=== PATIENT | male | born 2005 | race Two or more races ===

== ENCOUNTER 2023-06-09 16:13 | Emergency (ER) | payer BC, SELFPAY ==
--- NOTE | ~2023-06-09 | XR_ITS ---
EXAMINATION: XR wrist RT min 3V DATE: 06/09/2023 16:42 INDICATION: Right wrist pain post fall while wrestling TECHNIQUE: Posteroanterior, ulnar deviation, oblique, and lateral views of the right wrist were obtai jay jay. COMPARISON: none FINDINGS: Alignment is normal. No fracture. Joint spaces are normal. Soft tissues are unremarkable. IMPRESSION: 1. Negative right wrist radiographs. Reviewed, dictated and finalized at location A.
[2023-06-09 16:17] VITALS: BP 149/86; PULSE 103; RESP 18; TEMP 36.9; O2SAT 98
[2023-06-09 16:26] VITALS: BP 149/86; PULSE 103; RESP 18; TEMP 36.9; O2SAT 98
--- NOTE | 2023-06-09 17:20 | ED.GENADULT ---
HPI - General Adult General Chief complaint: Extremity Injury, Upper Stated complaint: Right wrist injury Time Seen by Provider: 06/09/23 16:50 History of Present Illness HPI narrative: 17-year-old male to the emergency department evaluation of right wrist pain. Patient reports that he struck his wrist on a dresser. Patient reports increased pain with range of motion but denies any other pain or injury. Related Data Allergies Allergy/AdvReac Type Severity Reaction Status Date / Time ibuprofen Allergy Seizure Verified 06/09/23 16:26 Review of Systems Review of Systems: All systems reviewed & are unremarkable except as noted in HPI and below Exam Narrative: APPEARANCE: Well appearing, no pain, no distress, well-nourished. HEAD: normocephalic, atraumatic. EYES: PERRLA/EOMI, conjunctivae clear. NOSE: Normal no drainage NECK: Supple. No adenopathy, no masses. RESPIRATORY: Airway patent, respirations nonlabored. Clear to auscultation bilaterally, no rales, rhonchi, wheezing. CARDIOVASCULAR: Regular rate and rhythm without murmurs rubs or gallops. ABDOMINAL: Soft, nontender, nondistended, normal bowel sounds MUSCULOSKELETAL: Moves all extremities. Some tenderness to palpation of right wrist but normal range of motion, neurovascular intact, strong cap refill NEURO: Alert. Cranial nerves II through XII intact. Grossly intact SKIN: Warm, dry. Normal Color Course Course Emergency Course: 17-year-old male presented the ED for evaluation of right wrist pain Vital Signs Vital signs: Vital Signs Temperature 98.4 F 06/09/23 16:17 Pulse Rate 103 H 06/09/23 16:17 Respiratory Rate 18 06/09/23 16:17 Blood Pressure 149/86 H 06/09/23 16:17 Pulse Oximetry 98 06/09/23 16:17 Oxygen Delivery Room Air 06/09/23 16:17 Temperature 98.4 F 06/09/23 16:26 Pulse Rate 103 H 06/09/23 16:26 Respiratory Rate 18 06/09/23 16:26 Blood Pressure 149/86 H 06/09/23 16:26 Pulse Oximetry 98 06/09/23 16:26 Oxygen Delivery Room Air 06/09/23 16:26 Medical Decision Making Differential Diagnosis Differential Diagnosis: Wrist pain, wrist fracture Vital Signs Vital Signs: Vital Signs Temperature 98.4 F 06/09/23 16:17 Pulse Rate 103 H 06/09/23 16:17 Respiratory Rate 18 06/09/23 16:17 Blood Pressure 149/86 H 06/09/23 16:17 Pulse Oximetry 98 06/09/23 16:17 Oxygen Delivery Room Air 06/09/23 16:17 Temperature 98.4 F 06/09/23 16:26 Pulse Rate 103 H 06/09/23 16:26 Respiratory Rate 18 06/09/23 16:26 Blood Pressure 149/86 H 06/09/23 16:26 Pulse Oximetry 98 06/09/23 16:26 Oxygen Delivery Room Air 06/09/23 16:26 Imaging Data Radiologist's impression: Impressions Wrist X-Ray 06/09/23 16:44 IMPRESSION: 1. Negative right wrist radiographs. Discharge Plan Discharge Clinical Impression: Sprain and strain of wrist Patient Disposition: Home, Self-Care Condition: Stable Instructions: Antibiotic Form, Wrist Sprain (ED) Additional Instructions: Tylenol for pain control. Ice as directed. Milad wrap for comfort. Have close follow-up with your primary care physician. Follow-up/Referrals: Janis Dos Santos MD [Primary Care Provider] -
== END 2023-06-09 17:30 | disposition home or self-care (01) ==
PROVIDERS: Emergency Provider Emergency Medicine; PCP Pediatrics
DX: S63.501A Unspecified sprain of right wrist, initial encounter (principal); S66.911A Strain of unspecified muscle, fascia and tendon at wrist and hand level, right hand, initial encounter; W22.03XA Walked into furniture, initial encounter
CPT/HCPCS: 73110; 99283

== ENCOUNTER 2023-06-30 00:29 | Emergency (ER) | payer BC, OTHER, SELFPAY ==
--- NOTE | ~2023-06-30 | XR_ITS ---
EXAMINATION: XR chest 1V portable DATE: 06/30/2023 02:13 INDICATION: Fever and cough. TECHNIQUE: A single frontal view of the chest was obtained. COMPARISON: None. FINDINGS: The lung volumes are small. There is mild atelectasis in the lower lung zones. No pleural e ffusion or pneumothorax. The heart size is normal. IMPRESSION: 1. Small lung volumes with mild atelectasis in the lower lung zones. Reviewed, dictated and finalized at location A.
[2023-06-30 00:38] VITALS: BP 117/86; PULSE 79; RESP 18; TEMP 36.6; O2SAT 98
[2023-06-30] MEDS: ACETAMINOPHEN 500 MG TABLET 1000 MG PO (01:51)
[2023-06-30 01:52] VITALS: BP 121/58; PULSE 86; RESP 14; TEMP 38.4; O2SAT 97
--- NOTE | 2023-06-30 01:55 | ED.GENADULT ---
HPI - General Adult General Chief complaint: Seizure Stated complaint: difficulty breathing/seizure Time Seen by Provider: 06/30/23 01:17 Source: family Mode of arrival: EMS Limitations: other (autism) History of Present Illness HPI narrative: 88-year-old male presents today via EMS with mother at bedside. Patient with history of autism. Patient's mother states that patient had not been feeling well all day long. She did not notice during the day though but found out after the fact. He did go to school today as normal which she gets out early and had come home. He did go down to the bedroom and laid down. Where he had been most of the day. Patient's mother states around 11 he had texted her that he was having problems breathing. She had her daughters go down and check on him. They stated they tried waking him up when he was mumbling which is normal for him. They did give him his medicine. Patient then went back to bed. They ended up calling her mother down. Patient was lying in the bed. Mom went over to talk to him when he was having problems breathing and coughing he sat up mom states he wrapped arms around her with hands flexed out and stayed that way for second then went and laid back down. He did this again. When he was coughing and she laid him down states his legs stayed up at that time. EMS was called and arrived at the scene where they brought him into here. No tremors noted. No urinary incontinence. Patient does not have a history of seizures. He is on Depakote and Lamictal due to behavior disorders. Per patient's mother patient is but does have siblings that have seizure disorders. Related Data Allergies Allergy/AdvReac Type Severity Reaction Status Date / Time ibuprofen Allergy Seizure Verified 06/30/23 00:40 Review of Systems Review of Systems: All systems reviewed & are unremarkable except as noted in HPI and below Exam Const: General: cooperative, alert, ill appearing acutely, tired appearing and uncomfortable; No acute distress Other: patient currently shaking head yes or now for questions, alert to self per mother he does not seem like himself. HENMT: Head: normal to inspection Eyes: General: appearance normal, both eyes and all related structures Conjunctivae: conjunctival abnormality bilateral conjunctival injection diffuse Pupils: Equal, round and reactive pupils present Resp: Effort & Inspection: normal respiratory effort and able to speak in complete sentences Auscultation: clear to auscultation bilaterally Cardio: Rate: regular rate Rhythm: regular rhythm Heart sounds: S1 normal heart sound present and S2 normal heart sound present Neuro: General: patient oriented x3 Course Vital Signs Vital signs: Vital Signs Temperature 97.8 F 06/30/23 00:38 Pulse Rate 79 06/30/23 00:38 Respiratory Rate 18 06/30/23 00:38 Blood Pressure 117/86 06/30/23 00:38 Pulse Oximetry 98 06/30/23 00:38 Oxygen Delivery Room Air 06/30/23 00:38 Temperature 99.7 F H 06/30/23 03:09 Pulse Rate 100 06/30/23 03:09 Respiratory Rate 14 06/30/23 03:09 Blood Pressure 123/87 06/30/23 03:09 Pulse Oximetry 99 06/30/23 03:09 Oxygen Delivery Room Air 06/30/23 01:52 Medical Decision Making MDM Narrative Medical decision making narrative: 17-year-old male with history of autism differentials as noted below work-up to include CBC, CMP, lactate, COVID, flu, RSV, strep, urinalysis, chest x-ray. Patient with fever 101.2. Oral acetaminophen given. CBC without concerning findings, CMP without concerning findings. Lactate is normal so low suspicion patient actually had a seizure. No seizure activity during stay. Strep negative, flu negative, RSV negative patient is positive for COVID. Fever has come down after acetaminophen. Chest x-ray without obvious infiltrates. Patient's mother would like the lithium and valproic acid level drawn but will be discharged prior to results a
[2023-06-30 02:42] LABS: Basophils Percent Auto 0.3 % (0.2-1.2); Eosinophils Percent Auto 0.3 % (0-4.4); Hematocrit 39.6 % (42.0-52.0); Immature Granulocyte Absolute 0.02 K/mm3 (0.00-0.031); Immature Granulocyte Percent A 0.3 % (0-0.5); Lymphocytes Absolute Auto 1.12 K/mm3 (0.9-3.2); Mean Corpuscular HGB Conc 35.4 g/dl (32-36); Mean Corpuscular Hemoglobin 30.9 pg (26-34); Mean Corpuscular Volume 87.4 fl (80-100); Mean Platelet Volume 9.2 fl (7.4-10.4); Monocytes Percent Auto 17.3 % (2.6-8.5); Neutrophils Absolute Auto 3.7 K/mm3 (1.3-6.7); Neutrophils Percent Auto 62.8 % (45.5-73.1); Nucleated Red Blood Cells Perc 0.3 % (0.0-0.2); Platelet Count Result 212 k/mm3 (150-375); Red Blood Count 4.53 M/mm3 (4.6-6.20); White Blood Count 5.9 K/mm3 (4.5-10.0)
[2023-06-30 02:52] LABS: Lactic Acid Reflex 0.7 mmol/L (0.7-2.0)
[2023-06-30 02:53] LABS: Alanine Aminotransferase 15 U/L (6-50); Alkaline Phosphatase 64 U/L (58-237); Anion Gap 5 mmol/L (8-16); Aspartate Amino Transferase 25 U/L (17-59); Blood Urea Nitrogen 9 mg/dL (8-21); Calcium 8.9 mg/dL (8.9-10.7); Carbon Dioxide 23 mmol/L (22-30); Chloride 106 mmol/L (98-107); Estimated Glomerular Filt Rate > 60; Glucose 90 mg/dL (65-110); Potassium 3.7 mmol/L (3.4-5.0); Sodium 134 mmol/L (134-143)
[2023-06-30 03:09] VITALS: BP 123/87; PULSE 100; RESP 14; TEMP 37.6; O2SAT 99
[2023-06-30 03:12] LABS: Strep Group A RT-PCR NOT DETECTED (Negative)
[2023-06-30 03:23] LABS: Influenza A QL RT-PCR Negative (Negative); Influenza B QL RT-PCR Negative (Negative); RSV RNA, RT-PCR Negative (Negative); SARS-CoV-2 RNA PCR Positive (Negative)
[2023-06-30 03:24] LABS: Appearance Urine Clear (Clear); Bacteria Urine None Seen /hpf; Bilirubin Urine 2+ (Negative); Blood Urine Negative (Negative); Color Urine Dark Yellow (Yellow); Glucose Urine UA Negative (Negative); Ketones Urine Trace mg/dL (Negative); Leukocyte Esterase Ur Negative LEU/UL (Negative); Nitrate Urine Negative (Negative); Non Pathogenic Casts 0-2; Protein Urine 1+ mg/dL (Negative); RBC Urine 0-2 /hpf (0-2); Specific Grav Ur 1.032 (1.001-1.035); Squamous Epithelial Cell Urine None seen /hpf (Few); WBC Urine 0-5 /hpf; pH Urine 6.5 (5.0-9.0)
[2023-06-30 03:52] LABS: Add Urine Microscopic? YES
[2023-06-30 04:02] LABS: Lithium 0.5 mmol/L (0.6-1.2)
[2023-06-30 04:30] LABS: Valproic Acid < 10.0 ug/mL (50-120)
== END 2023-06-30 04:08 | disposition home or self-care (01) ==
PROVIDERS: Emergency Provider Nurse Practitioner Family; PCP Pediatrics
DX: U07.1 COVID-19 (principal)
CPT/HCPCS: 36415; 71045; 80053; 80164; 80178; 81001; 83605; 85025; 87637; 87651; 99283; A9270

== ENCOUNTER 2023-11-09 23:44 | Inpatient (IN) | payer BC, OTHER, SELFPAY ==
[2023-11-09 23:48] VITALS: BP 149/71; PULSE 83; RESP 20; TEMP 36.2; O2SAT 99
[2023-11-10] VITALS (11 sets, daily range): BP systolic 94–121; BP diastolic 50–80; PULSE 56–93; RESP 14–20; TEMP 36.5–36.7; O2SAT 93–100; BMI 30.3
--- NOTE | 2023-11-10 00:01 | ECG_ITS ---
Measurements Intervals [place] Rate: 60 P: 44 [place]: 171 QRS: 43 QRSD: 98 T: 12 QT: 414 QTc: 416 Interpretive Statements SINUS RHYTHM WITH SINUS ARRHYTHMIA NONSPECIFIC ST ELEVATION IN DIFFUSE LEADS BORDERLINE ECG NO PREVIOUS ECG AVAILABLE FOR COMPARISON Electronically Signed On 11-10-2023 6:43:55 [employer] POUNCING OPERATOR HAND by Tato Burgess D.O.
[2023-11-10] MEDS: SODIUM CHLORIDE 0.9% IV 1,000 ML 999 ML IV CONT ×2 (00:21→02:42)
--- NOTE | 2023-11-10 00:22 | PC.NURSE ---
call placed to [facility].
[2023-11-10 00:41] LABS: Basophils Percent Auto 0.4 % (0.2-1.2); Eosinophils Percent Auto 0.5 % (0-4.4); Hematocrit 42.5 % (42.0-52.0); Hemoglobin 15.2 g/dL (14.0-18.0); Immature Granulocyte Absolute 0.02 K/mm3 (0.00-0.031); Immature Granulocyte Percent A 0.3 % (0-0.5); Lymphocytes Absolute Auto 2.14 K/mm3 (0.9-3.2); Lymphocytes Percent Auto 27.7 % (18.3-44.2); Mean Corpuscular HGB Conc 35.8 g/dl (32-36); Mean Corpuscular Hemoglobin 30.1 pg (26-34); Mean Corpuscular Volume 84.2 fl (80-100); Mean Platelet Volume 9.2 fl (7.4-10.4); Monocytes Absolute Auto 0.5 K/mm3 (0.1-0.6); Monocytes Percent Auto 6.7 % (2.6-8.5); Neutrophils Percent Auto 64.4 % (45.5-73.1); Platelet Count Result 279 k/mm3 (150-375); Red Blood Count 5.05 M/mm3 (4.6-6.20); Red Cell Distribution Width 11.5 % (11.5-14.5); White Blood Count 7.7 K/mm3 (4.5-10.0)
[2023-11-10 00:43] LABS: Lithium 1.2 mmol/L (0.6-1.2)
[2023-11-10 00:44] LABS: Acetaminophen < 10 ug/mL (10-30); Ethanol < 10 mg/dL (<10)
[2023-11-10 00:45] LABS: Alanine Aminotransferase 17 U/L (6-50); Albumin Level 4.2 g/dL (3.7-5.6); Alkaline Phosphatase 75 U/L (58-237); Anion Gap 11 mmol/L (8-16); Aspartate Amino Transferase 26 U/L (17-59); Bilirubin,Total 0.8 mg/dL (0.2-1.3); Blood Urea Nitrogen 9 mg/dL (8-21); Calcium 9.4 mg/dL (8.9-10.7); Carbon Dioxide 26 mmol/L (22-30); Chloride 104 mmol/L (98-107); Estimated CRCL calculation 138 ml/min; Estimated Glomerular Filt Rate > 60; Glucose 96 mg/dL (65-110); Potassium 3.9 mmol/L (3.4-5.0); Sodium 141 mmol/L (134-143)
[2023-11-10] MEDS: ONDANSETRON INJ 4 MG/2 ML VIAL IV PUSH (00:58)
--- NOTE | 2023-11-10 01:00 | ED.OVERDOSE ---
HPI - Overdose General Chief Complaint: Overdose <ROSANNE Tapia Last Filed: 11/10/23 03:43> Stated Complaint: od <ROSANNE Tapia Last Filed: 11/10/23 03:43> Time Seen by Provider: 11/10/23 00:02 <ROSANNE Tapia Last Filed: 11/10/23 03:43> Source: patient and family <ROSANNE Tapia Last Filed: 11/10/23 03:43> Mode of arrival: ambulatory <ROSANNE Tapia Filed: 11/10/23 03:43> Limitations: no limitations <ROSANNE Tapia Filed: 11/10/23 03:43> History of Present Illness HPI Narrative: Patient is a 17-year-old male, with past medical history of schizoaffective disorder, autism, who presents the ED with report of intentional overdose. Patient reports he was having a bad day today and attempted to end his life by overdosing on lithium and Motrin at 11:04 p.m. tonight. Patient reports he took 10 of his 300 mg lithium pills with 45 tablets of OTC 200mg Ibuprofen. patient told his sister and his girlfriend he about this who then told his mother. Mother then brought him here. Patient is denying SI upon my evaluation. He states he is afraid if he falls asleep he will . He does feel fatigued, lightheaded, nauseous currently. Complains of diffuse lower abdominal pain. Denies vomiting. Patient has had numerous previous psychiatric hospitalizations. Reports previous suicide attempt, though not by overdose. Does see a psychiatrist regularly. patient does admit to auditory hallucinations, which is not uncommon for him. His stuffed animal, Fuzzy, is nearby to tell him good things. <ROSANNE Tapia Last Filed: 11/10/23 03:43> Related Data Allergies/Adverse Reactions: Allergies Allergy/AdvReac Type Severity Reaction Status Date / Time ibuprofen Allergy Seizure Verified 06/30/23 00:40 <ROSANNE Tapia Last Filed: 11/10/23 03:43> Review of Systems Review of Systems: CONSTITUTIONAL: Denies fever, chills, or sweats. CARDIOVASCULAR: Denies chest pain. RESPIRATORY: Denies dyspnea. GASTROINTESTINAL: See HPI NEUROLOGIC: See HPI PSYCHIATRIC: See HPI <Emily Barboza PA-C - Last Filed: 11/10/23 03:43> All systems reviewed & are unremarkable except as noted in HPI and below <Emily Barboza PA-C - Last Filed: 11/10/23 03:43> PMFSH Past Medical History Medical History: Medical History Autism Schizoaffective disorder <Emily Barboza PA-C - Last Filed: 11/10/23 03:43> Exam Narrative: GENERAL: Well appearing, well-nourished, non-toxic, in no acute distress. HEAD: Normocephalic, atraumatic. RESPIRATORY: Airway patent, respirations nonlabored. Clear to auscultation bilaterally, no rales, rhonchi, wheezing. CARDIOVASCULAR: Regular rate and rhythm without murmurs, rubs, or gallops. ABDOMINAL: Soft, no appreciable focal tenderness, nondistended. Normoactive BS. MUSCULOSKELETAL: Moves all extremities. No gross deformities. SKIN: Warm, dry, normal color. NEURO: A&O X3. Speech clear. Cranial nerves II-XII grossly intact. No ataxic movements. PSYCHIATRIC: Anxious, somewhat inappropriate and affable mood in regards to situation. Normal interaction. <Emily Barboza PA-C - Last Filed: 11/10/23 03:43> Course Vital Signs Vital signs: Vital Signs Temperature 97.2 F L 11/09/23 23:48 Pulse Rate 83 11/09/23 23:48 Respiratory Rate 20 11/09/23 23:48 Blood Pressure 149/71 H 11/09/23 23:48 Pulse Oximetry 99 11/09/23 23:48 Oxygen Delivery Room Air 11/09/23 23:48 Temperature 97.2 F L 11/09/23 23:48 Pulse Rate 56 L 11/10/23 02:42 Respiratory Rate 15 11/10/23 02:42 Blood Pressure 108/60 11/10/23 02:42 Pulse Oximetry 100 11/10/23 02:42 Oxygen Delivery Room Air 11/09/23 23:48 <Emily Barboza PA-C - Last Filed: 11/10/23 03:43>
[2023-11-10 01:08] LABS: Influenza A QL RT-PCR Negative (Negative); Influenza B QL RT-PCR Negative (Negative); RSV RNA, RT-PCR Negative (Negative); SARS-CoV-2 RNA PCR Negative (Negative)
[2023-11-10 02:09] LABS: Appearance Urine Clear (Clear); Bilirubin Urine Negative (Negative); Blood Urine Negative (Negative); Color Urine Yellow (Yellow); Glucose Urine UA Negative (Negative); Ketones Urine Negative (Negative); Leukocyte Esterase Ur Negative LEU/UL (Negative); Nitrate Urine Negative (Negative); Protein Urine Negative (Negative); Specific Grav Ur 1.021 (1.001-1.035)
[2023-11-10 02:15] LABS: Add Urine Microscopic? NO
[2023-11-10 02:18] LABS: Creatine Kinase 245 U/L (55-170)
[2023-11-10 02:24] LABS: Amphetamine Screen Urine Negative (Negative); Barbiturate Screen Urine Negative (Negative); Benzodiazepines Screen Urine Negative (Negative); Cannabinoid Screen Urine Negative (Negative); Cocaine Screen Urine Negative (Negative); Methadone Screen Urine Negative (Negative); Opiate Screen Urine Negative (Negative); Phencyclidine Screen Urine Negative (Negative)
[2023-11-10 03:03] LABS: Lithium 1.6 mmol/L (0.6-1.2)
[2023-11-10 03:06] LABS: Valproic Acid < 10.0 ug/mL (50-120)
[2023-11-10 05:24] LABS: Lithium 1.2 mmol/L (0.6-1.2)
--- NOTE | 2023-11-10 05:45 | ECG_ITS ---
Measurements Intervals [place] Rate: 54 P: 47 [place]: 189 QRS: 43 QRSD: 96 T: 5 QT: 416 QTc: 395 Interpretive Statements SINUS BRADYCARDIA WITH SINUS ARRHYTHMIA NONSPECIFIC ST ELEVATION IN ANTEROLAT/HIGH LAT LEADS NONSPECIFIC T-WAVE ABNORMALITY- INFERIOR LEADS BORDERLINE ECG COMPARED TO ECG 11/10/2023 00:30:23 SINUS BRADYCARDIA NOW PRESENT Electronically Signed On 11-10-2023 6:47:39 [employer]IEF LIBRARIAN BR[employer]CH [employer] DEPARTMENT by Tato Burgess D.O.
[2023-11-10] MEDS: SODIUM CHLORIDE 0.9% IV 1,000 ML 125 ML IV CONT ×2 (05:56→22:54)
[2023-11-10 06:09] LABS: Alanine Aminotransferase 16 U/L (6-50); Albumin Level 3.4 g/dL (3.7-5.6); Alkaline Phosphatase 52 U/L (58-237); Anion Gap 5 mmol/L (8-16); Aspartate Amino Transferase 26 U/L (17-59); Bilirubin,Total 1.2 mg/dL (0.2-1.3); Blood Urea Nitrogen 7 mg/dL (8-21); Calcium 8.6 mg/dL (8.9-10.7); Carbon Dioxide 24 mmol/L (22-30); Chloride 110 mmol/L (98-107); Estimated CRCL calculation 156 ml/min; Estimated Glomerular Filt Rate > 60; Glucose 91 mg/dL (65-110); Potassium 4.2 mmol/L (3.4-5.0); Sodium 139 mmol/L (134-143)
--- NOTE | 2023-11-10 06:55 | ADMGEN ---
This patient, Jeffy Mosley, was admitted to Intensive Care Unit-10. Patient/family oriented to hospital policies and general routines including ID bracelet, bed and alarms, visiting hours, pain management, procedures, bathroom and other care routines, personal items, smoking policy, room service/diet, and visiting hours. Information on how to activate the Rapid Response Team has been discussed. Patient/Family are encouraged to report perceived risks to care and to ask questions if they do not understand what they are told or what they should do.
--- NOTE | 2023-11-10 07:45 | PM.IMHP ---
H&P: HPI History of Present Illness Date/Time: 11/10/23 07:45 Chief Complaint: Intentional drug overdose Narrative: 89 years old man with history of psychiatric disorders, including suicide attempts, schizoaffective disorders, autism, brought to ED because of intentional overdose of multiple medications including lithium 300 mg x 10, ibuprofen 200 mg times 45. Patient stated he had a bad day yesterday, he had a conversation with his mom, he was not happy with the talking and he want to end his life. Patient declines the leaking the content of the conversation, and declines my offer in speaking with his mom. Patient feels tired, lightheaded, nausea, or abdomen pain. Denies chest pain, palpitation, shortness of breath. Upon arrival, patient had transient hypotension, bradycardia pulse ox 99 on room air CBC CMP unremarkable, CPK 245, lisinopril 1.6 upon arrival, repeated the same level 1.2 7:59 a.m. today [facility] Past Medical History Medical History Autism Schizoaffective disorder Family History Family History (Updated 11/10/23 @ 07:20 by Siomara Lo RN) Other Unknown family medical history Social History Social History Smoking status: Never smoker Alcohol intake: never Substance use: never Do You Feel Safe in your Home?: Yes Lack of Transportation: No Lack of Food: Never True Current Housing: I Have Housing Concerned About Future Housing: No Difficulty Paying Gas/Electric Bills: No Difficulty Paying for Meds: No Currently Unemployed: No Education: High School Diploma/GED Difficulty w/ Childcare or Family Care: No Spiritual care concerns: No Meds Home Medications and Allergies Home Medications Medication Instructions Recorded Confirmed Type divalproex 500 mg tablet,delayed 500 mg PO BID 11/10/23 11/10/23 History release ergocalciferol (vitamin D2) 1,250 1,250 mcg PO WEEKLY 11/10/23 11/10/23 History mcg (50,000 unit) capsule hydroxyzine HCl 50 mg tablet 50 mg PO HS 11/10/23 11/10/23 History lithium carbonate 300 mg capsule 300 mg PO BID 11/10/23 11/10/23 History paliperidone palmitate 156 mg/mL 156 mg IM MONTHLY 11/10/23 11/10/23 History intramuscular syringe (Invega Sustenna) terazosin 1 mg capsule 1 mg PO HS 11/10/23 11/10/23 History trazodone 100 mg tablet 200 mg PO HS 11/10/23 11/10/23 History Allergies Allergy/AdvReac Type Severity Reaction Status Date / Time ibuprofen Allergy Seizure Verified 06/30/23 00:40 Vital Signs Vital Signs - 24 hr 11/09/23 23:48 11/10/23 00:22 11/10/23 02:42 Temperature 97.2 F L Pulse Rate 83 56 L Respiratory Rate 20 16 15 Blood Pressure 149/71 H 108/60 Pulse Oximetry 99 100 Oxygen Delivery Room Air 11/10/23 06:07 Temperature Pulse Rate 62 Respiratory Rate 15 Blood Pressure 94/60 L Pulse Oximetry 100 Oxygen Delivery Exam Narrative: GENERAL: , in no acute distress. Well-nourished. - EYES: EOMI. Anicteric. - HENT: Moist mucous membranes. - LUNGS: Clear to auscultation bilaterally, no wheezing, rhonchi, or rales. - CARDIOVASCULAR: Regular rate and rhythm. No murmur. No JVD. - ABDOMEN: Soft, non-tender and non-distended. No palpable masses. - EXTREMITIES: No edema. Peripheral pulses 2+. Non-tender. - NEUROLOGIC: No focal neurological deficits. CN II-XII grossly intact. - PSYCHIATRIC: Awake, Alert and oriented x 3. Depressed mood and affect. - SKIN: No rashes or lesions. Warm. - LYMPH: No cervical lymphadenopathy. H&P: Results Labs Labs: Short CBC 11/10/23 Range/Units 00:19 WBC 7.7 (4.5-10.0) K/mm3 Hgb 15.2 (14.0-18.0) g/dL Hct 42.5 (42.0-52.0) % Plt Count 279 (150-375) k/mm3 [facility] 11/10/23 11/10/23 00:19 05:51 Sodium 141 139 Potassium 3.9 4.2 Chloride 104 110 H Carbon Dioxide 26 24 BUN 9 7 L Creatinine 0.80
--- NOTE | 2023-11-10 07:49 | PC.NURSE ---
Poison control contacted. Recommended repeat lithium level at 0800. States cleared from ibuprofen due to no acidosis noted on chemistry. Spoke with [facility]. Assigned
[2023-11-10] MEDS: ENOXAPARIN 40 MG/0.4 ML SYRINGE SUB-Q (08:48)
--- NOTE | 2023-11-10 10:12 | PC.NURSE ---
Poison control case closed per [facility].
[2023-11-11] VITALS (7 sets, daily range): BP systolic 98–127; BP diastolic 53–76; PULSE 55–86; RESP 15–22; TEMP 36.6–37.1; O2SAT 90–97
[2023-11-11 08:57] LABS: Alanine Aminotransferase 14 U/L (6-50); Albumin Level 3.6 g/dL (3.7-5.6); Alkaline Phosphatase 51 U/L (58-237); Anion Gap 7 mmol/L (8-16); Aspartate Amino Transferase 21 U/L (17-59); Bilirubin,Total 1.5 mg/dL (0.2-1.3); Blood Urea Nitrogen 5 mg/dL (8-21); Calcium 9.3 mg/dL (8.9-10.7); Carbon Dioxide 24 mmol/L (22-30); Chloride 109 mmol/L (98-107); Estimated CRCL calculation 176 ml/min; Estimated Glomerular Filt Rate > 60; Glucose 91 mg/dL (65-110); Magnesium 1.9 mg/dL (1.6-2.3); Phosphorus 4.2 mg/dL (2.5-4.5); Potassium 3.9 mmol/L (3.4-5.0); Sodium 140 mmol/L (134-143)
[2023-11-11 09:10] LABS: Basophils Absolute Auto 0.1 K/mm3 (0.0-0.1); Basophils Percent Auto 0.7 % (0.2-1.2); Eosinophils Absolute Auto 0.1 K/mm3 (0-0.3); Eosinophils Percent Auto 1.3 % (0-4.4); Hematocrit 43.5 % (42.0-52.0); Hemoglobin 14.6 g/dL (14.0-18.0); Immature Granulocyte Absolute 0.03 K/mm3 (0.00-0.031); Immature Granulocyte Percent A 0.4 % (0-0.5); Lymphocytes Absolute Auto 2.85 K/mm3 (0.9-3.2); Lymphocytes Percent Auto 42.2 % (18.3-44.2); Mean Corpuscular HGB Conc 33.6 g/dl (32-36); Mean Corpuscular Hemoglobin 29.6 pg (26-34); Mean Corpuscular Volume 88.1 fl (80-100); Mean Platelet Volume 9.4 fl (7.4-10.4); Monocytes Absolute Auto 0.4 K/mm3 (0.1-0.6); Monocytes Percent Auto 6.5 % (2.6-8.5); Neutrophils Absolute Auto 3.3 K/mm3 (1.3-6.7); Neutrophils Percent Auto 48.9 % (45.5-73.1); Platelet Count Result 241 k/mm3 (150-375); Red Blood Count 4.94 M/mm3 (4.6-6.20); Red Cell Distribution Width 11.9 % (11.5-14.5); White Blood Count 6.8 K/mm3 (4.5-10.0)
[2023-11-11] MEDS: ENOXAPARIN 40 MG/0.4 ML SYRINGE SUB-Q (09:30)
--- NOTE | 2023-11-11 16:04 | WPDPN ---
Subjective Date/time seen: 11/11/23 16:04 Interval history: Patient is medically cleared for discharge Objective Data Vital Signs Vital Signs: Vital Signs - 24 hr 11/10/23 18:00 11/10/23 18:00 11/10/23 20:00 Temperature Pulse Rate 60 61 Respiratory Rate 18 Blood Pressure 121/69 Pulse Oximetry 93 Oxygen Delivery Room Air 11/10/23 20:00 11/11/23 00:00 11/10/23 20:40 Temperature 98.1 F Pulse Rate 67 58 L 84 Respiratory Rate 17 Blood Pressure 121/69 Pulse Oximetry 97 Oxygen Delivery 11/11/23 00:00 11/11/23 04:00 11/11/23 08:00 Temperature Pulse Rate 55 L 62 Respiratory Rate 15 Blood Pressure 115/76 Pulse Oximetry 90 Oxygen Delivery Room Air 11/11/23 08:00 11/11/23 08:00 11/11/23 12:00 Temperature 98.5 F Pulse Rate 73 61 86 Respiratory Rate 20 Blood Pressure 98/60 L Pulse Oximetry 94 Oxygen Delivery Intake/Output Intake/Output: Intake & Output 11/08/23 11/09/23 11/10/23 11/11/23 23:59 23:59 23:59 23:59 Intake Total 3480 1320 Output Total 1999 425 Balance 1480 895 Meds/Results Medications: Active Medications Generic Name Dose Route Start Last Admin Trade Name Freq PRN Reason Stop Dose Admin Enoxaparin Sodium 40 mg 11/10/23 09:00 11/11/23 09:30 Enoxaparin 40 Mg/0.4 Ml Syringe SUB-Q 40 mg DAILY KENY Administration Ondansetron HCl 4 mg 11/10/23 08:12 Ondansetron Inj 4 Mg/2 Ml Vial IV PUSH Q6H PRN Nausea And Vomiting Labs Labs: Laboratory Results - last 24 hr 11/11/23 08:10 WBC 6.8 RBC 4.94 Hgb 14.6 Hct 43.5 MCV 88.1 MCH 29.6 MCHC 33.6 RDW 11.9 Plt Count 241 MPV 9.4 Immature Gran % (Auto) 0.4 Neut % (Auto) 48.9 Lymph % (Auto) 42.2 Dolores % (Auto) 6.5 Eos % (Auto) 1.3 Baso % (Auto) 0.7 Lymph # (Auto) 2.85 Dolores # (Auto) 0.4 Eos # (Auto) 0.1 Baso # (Auto) 0.1 Abs Immat Gran (auto) 0.03 Absolute Neuts (auto) 3.3 Absolute Nucleated RBC 0.0 Nucleated RBC % 0.0 Sodium 140 Potassium 3.9 Chloride 109 H Carbon Dioxide 24 Anion Gap 7 L BUN 5 L Creatinine 0.70 Estim Creat Clear Calc 176 Estimated GFR > 60 Glucose 91 Calcium 9.3 Phosphorus 4.2 Magnesium 1.9 Total Bilirubin 1.5 H AST 21 ALT 14 Alkaline Phosphatase 51 L Total Protein 6.0 L Albumin 3.6 L
--- NOTE | 2023-11-11 18:14 | PM.IMPN ---
Progress Note: A&P Assessment and Plan (1) Suicide attempt by multiple drug overdose: Qualifiers: Encounter type: initial encounter Qualified Code(s): T50.912A - Poisoning by multiple unspecified drugs, medicaments and biological substances, intentional self-harm, initial encounter Code(s): T50.912A - Poisoning by multiple unspecified drugs, medicaments and biological substances, intentional self-harm, initial encounter Status: Acute Assessment and Plan: Intentional drug overdose with multiple medications. History of schizoaffective disorder and multiple suicide attempts Patient took motrin 9000mg and lithium 3000mg at 2304 on 11/09/23 Sinus bradycardia with hypotension noted. He has received fluid resuscitation of sodium chloride 2 L. Blood pressure stable Urine drug screening negative ER physician consulted poison Control, advised peak onset of lithium at 3-6 hour erin. Recommended q2h lithium levels and repeat Monitoring CMP and stable. Continue Protonix Okay to stop IV fluids. Continue cardiac monitor technician, neuro checks and seizure precautions Patient is medically cleared for transfer to a psychiatric facility. Transfer to psych facility being arranged (2) Overdose of lithium or lithium compound: Code(s): T56.891A - Toxic effect of other metals, accidental (unintentional), initial encounter Status: Acute Assessment and Plan: As above (3) Schizoaffective disorder: Qualifiers: Schizoaffective disorder type: unspecified Qualified Code(s): F25.9 - Schizoaffective disorder, unspecified Code(s): F25.9 - Schizoaffective disorder, unspecified Status: Acute Assessment and Plan: Home medications on hold for now. Plan for placement and possibly re-adjustment of his medications. (4) Autism: Code(s): F84.0 - Autistic disorder Status: Acute Assessment and Plan: As above Plan Code status -full DVT prophylax -Lovenox Subjective Date/time seen: 11/11/23 18:14 Interval history: 17yo male with schizoaffective disorder and autism here for intentional drug overdose in a suicide attempt He feels 'good'. Slept well. No n/v. No complaints Exam Narrative: AF 98.8 104/53 62 22 95% ra Gen - NARD Chest - CTA bilaterally, nml RR CV - RRR S1/S2. Telemetry showing no significant dysrhythmias Abd - Soft, NT/ND, Positive BS Ext - No pedal edema Neuro - Alert and oriented. Nonfocal exam. Psych - Nml mood and affect. Well groomed. Skin - Warm and dry Objective Data Vital Signs Vital Signs: Vital Signs - 24 hr 11/10/23 20:00 11/10/23 20:00 11/11/23 00:00 Temperature Pulse Rate 67 58 L Respiratory Rate Blood Pressure Pulse Oximetry Oxygen Delivery Room Air 11/10/23 20:40 11/11/23 00:00 11/11/23 04:00 Temperature 98.1 F Pulse Rate 84 55 L 62 Respiratory Rate 17 15 Blood Pressure 121/69 115/76 Pulse Oximetry 97 90 Oxygen Delivery 11/11/23 08:00 11/11/23 08:00 11/11/23 08:00 Temperature 98.5 F Pulse Rate 73 61 Respiratory Rate 20 Blood Pressure 98/60 L Pulse Oximetry 94 Oxygen Delivery Room Air 11/11/23 12:00 11/11/23 16:00 Temperature 98.8 F Pulse Rate 86 62 Respiratory Rate 22 H Blood Pressure 104/53 L Pulse Oximetry 95 Oxygen Delivery Intake/Output Intake/Output: Intake & Output 11/08/23 11/09/23 11/10/23 11/11/23 23:59 23:59 23:59 23:59 Intake Total 3480 1320 Output Total 1999 425 Balance 1480 895 Meds/Results Medications: Active Medications Generic Name Dose Route Start Last Admin Trade Name Freq PRN Reason Stop Dose Admin Enoxaparin Sodium 40 mg 11/10/23 09:00 11/11/23 09:30 Enoxaparin 40 Mg/0.4 Ml Syringe SUB-Q 40 mg DAILY KENY Administration Ondansetron HCl 4 mg 11/10/23 08:12 Ondansetron Inj 4 Mg/2 Ml Vial IV PUSH Q6H PRN Nausea And Vomiting Labs Labs: Laborat
[2023-11-12] VITALS: BP 131/71; PULSE 67; PULSE 76; RESP 19; TEMP 36.7; O2SAT 98
[2023-11-12 04:00] VITALS: PULSE 53
[2023-11-12 07:55] VITALS: BP 117/60; PULSE 79; RESP 14; TEMP 36.7; O2SAT 98
[2023-11-12 08:00] VITALS: PULSE 59
[2023-11-12] MEDS: ENOXAPARIN 40 MG/0.4 ML SYRINGE SUB-Q (08:57)
--- NOTE | 2023-11-12 10:31 | PM.DS ---
DS: Admitting Diagnosis Discharge Date 11/12/23 Admitting Diagnosis Intentional drug overdose DS: Discharge Diagnosis Discharge Diagnosis (1) Suicide attempt by multiple drug overdose: Qualifiers: Encounter type: initial encounter Qualified Code(s): T50.912A - Poisoning by multiple unspecified drugs, medicaments and biological substances, intentional self-harm, initial encounter Code(s): T50.912A - Poisoning by multiple unspecified drugs, medicaments and biological substances, intentional self-harm, initial encounter Status: Acute (2) Overdose of lithium or lithium compound: Code(s): T56.891A - Toxic effect of other metals, accidental (unintentional), initial encounter Status: Acute (3) Schizoaffective disorder: Qualifiers: Schizoaffective disorder type: unspecified Qualified Code(s): F25.9 - Schizoaffective disorder, unspecified Code(s): F25.9 - Schizoaffective disorder, unspecified Status: Acute (4) Autism: Code(s): F84.0 - Autistic disorder Status: Acute DS: Summary Hospital Course Reason for hospitalization: 17yo male with schizoaffective disorder and autism here for intentional drug overdose in a suicide attempt. Please see H&P for details. Hospital Course: Intentional drug overdose with multiple medications. History of schizoaffective disorder and multiple suicide attempts. Patient took Motrin 9000mg and lithium 3000mg at 2304 on 11/09/23. Sinus bradycardia with hypotension noted. He received fluid resuscitation of sodium chloride 2 L. Blood pressure stable. Urine drug screening negative. ER physician consulted poison Control, advised peak onset of lithium at 3-6 hour erin. [place] level peaked at 1.6 before trending down. Protonix added. Stopped IV fluids and BP remained stable. Heart rate low at time but felt to be physiologic. Patient is medically cleared for transfer to a psychiatric facility. Arrangements made and patient was transferred to a psychiatric facility on 11/12/23. Status at Discharge Cognitive/behavioral status at discharge: stable Time Spent with Patient Time attestation: Total time spent providing and/or coordinating discharge services: 35 minutes Time spent: Greater than 30 minutes Exam Narrative: AF 98.1 117/60 59 14 98% ra Gen - NARD Chest - CTA bilaterally, nml RR CV - RRR S1/S2. Telemetry showing no significant dysrhythmias. bradycardia at times but always>45 Abd - Soft, NT/ND, Positive BS Ext - No pedal edema Neuro - Alert and oriented. Nonfocal exam. Psych - Nml mood and affect. Well groomed. Skin - Warm and dry Discharge Plan Discharge Attending physician on discharge: Vishnu Verdugo Discharging Clinician: Vishnu Verdugo Anticipated Discharge Date/Time: 11/12/23 10:39 Patient Disposition: Acute Care Hospital Activity: as tolerated Diet: as tolerated Discharge Medications: Held hydroxyzine HCl 50 mg tablet 50 mg PO HS Hold Instructions: Hold- resume when okay with the provider terazosin 1 mg capsule 1 mg PO HS Hold Instructions: Hold- resume when okay with the provider divalproex 500 mg tablet,delayed release (DR/EC) 500 mg PO BID Hold Instructions: Hold- resume when okay with the provider trazodone 100 mg tablet 200 mg PO HS Hold Instructions: Hold- resume when okay with the provider ergocalciferol (vitamin D2) 1,250 mcg (50,000 unit) capsule 1,250 mcg PO WEEKLY Hold Instructions: Hold- resume when okay with the provider Rx Instructions: on Monday Invega Sustenna 156 mg/mL syringe 156 mg IM MONTHLY Hold Instructions: Hold- resume when okay with the provider Rx Instructions: the 5th of every month Discontinued lithium carbonate 300 mg capsule 300 mg PO BID Date of admission: 11/10/23 10:43 Primary Care Provider: Janis Dos Santos Admitting Provider: Mehnaz Gardner
[2023-11-12 12:00] VITALS: PULSE 55
== END 2023-11-12 13:25 | DRG 918 ==
LOC: ANHED 11-10 05:36 → ANHICU 11-10 06:41
PROVIDERS: Hospitalist; Physician Assistant; Admitting Provider Internal Medicine; Emergency Provider Student in an Organized Health Care Education/Training Program; PCP Pediatrics; Visit Provider Internal Medicine
DX: T43.592A Poisoning by other antipsychotics and neuroleptics, intentional self-harm, initial encounter (principal); F84.0 Autistic disorder; T39.312A Poisoning by propionic acid derivatives, intentional self-harm, initial encounter; F25.9 Schizoaffective disorder, unspecified; R00.1 Bradycardia, unspecified; I95.2 Hypotension due to drugs; Z11.52 Encounter for screening for COVID-19
CPT/HCPCS: 36415; 80053; 80164; 80178; 80307; 81003; 82550; 83735; 84100; 84443; 85025; 87637; 93005; 96361; 96374; 99285; G0378; J1650; J2405; J7030

== ENCOUNTER 2025-08-08 08:57 | Emergency (ER) | payer BC, SELFPAY ==
--- OUTSIDE RECORDS SUMMARY | 2025-08-07 06:00 | XMS_ITS ---
Author Organization [facility] Address [address] [place] [address] Care Team Providers Care Industrial Registered Nurse Name Role Phone Evi Calixto Primary Care Provider Allergies No Known Allergies REASON FOR VISIT Injection Medications Medication SIG (Take, Route, Frequency, Duration) Notes Start Date End Date Status hydrOXYzine HCl 50 MG 1 tablet as needed Orally Once a day; Duration: 30 days Would like to use pill packs for his medications. Active Terazosin HCl 1 MG 1 capsule at bedtime Orally Once a day; Duration: 30 days Active [place] Carbonate 300 MG 1 capsule at bedtime Orally Once a day; Duration: 30 days Would like to use pill packs for his medications. 05/30/2024 Active Depakote ER 500 MG 2 tablets at bedtime Orally Once a day; Duration: 30 days Would like to use pill packs for his medications. Active [place] Carbonate 600 MG 2 capsule Orally Once a day; Duration: 30 days Would like to use pill packs for his medications. Active traZODone HCl 100 MG 3 tablet at bedtime Orally Once a day; Duration: 30 days Would like to use pill packs for his medications. Active Invega Sustenna 234 MG/1.5ML 1.5 mL Intramuscular once a month; Duration: 30 days Would like to use pill packs for his medications. Active Sertraline HCl 100 MG 1.5 tablet Orally Once a day; Duration: 30 days Would like to use pill packs for his medications. 07/26/2024 Active risperiDONE 1 MG 1 tablet as needed Oral Once a day; Duration: 30 days As needed Would like to use pill packs for his medications. Active Ergocalciferol 1.25 MG (75370 UT) 1 capsule Orally once a week; Duration: 30 days Would like to use pill packs for his medications. Active Albuterol Sulfate HFA 108 (90 Base) MCG/ACT 1 puff as needed Inhalation every 4 hrs Active traZODone HCl 100 MG 1 tablet at bedtime Orally Once a day; Duration: 30 day(s) Active Social History Sex Assigned At : Social History Observation Description Sex Assigned At Male Vital Signs Weight 229 lbs 08/07/2025 Blood pressure systolic 108 mm Hg 08/07/20 25 Blood pressure diastolic 60 mm Hg 025 Heart Rate 72 /min 08/07/2025 Oximetry 99 % 08/07/2025 Temperature 97.7 degrees Fahrenheit 08/07/20 25 Respiratory Rate 16 /min 08/07/2025 Encounters Encounter Location Date Provider Diagnosis [facility] [address] [place] [address] 08/07/2025 Evi Calixto Schizoaffective disorder, bipolar type F25.0 Assessments Encounter Date Diagnosis (ICD Code) Assessment Notes Treatment Notes Treatment Clinical Notes Section Notes 08/07/2025 Schizoaffective disorder, bipolar type (ICD-10 - F25.0) Plan Of Treatment Next Appt Details Provider Name:Evi santos, 08/28/2025 02:40:00 PM, [address], [place], [address], Provider Name:Evi santos, 09/04/2025 11:00:00 AM, [address], [place], [address], Medications Administered Medication Instructions Date of Administration Dosage Notes Invega Sustenna 08/07/2025 234 mg Pt jose j we ll. Progress Notes * Rebeka MOSLEYOB:[birth year] (19 yo M)Acc No.[id number]:08/07/2025 Progress Note Patient: Jeffy KARIMI Provider: Vijay Calixto, MAURICE, PMHNP-BC, FIELD MARKETING MANAGER :2005 A ge:19 Y S ex:Male Date:08/07/2025 Address:[address] [place], [place] [id number] Check In:10:58 AM CLINICAL CARE MANAGER Subjective: * Chief Complaints: * I njection * Medical History: * Surgical History: * Hospitalization/Major Diagno stic Procedure: * Medications: T akingAlbuterol Sulfate HFA 108 (90 Base) MCG/ACT Aerosol Solution 1 puff as needed Inhalation every 4 hrs traZODone HCl 100 MG Tablet 1 tablet at bedtime Orally Once a day Invega Sustenna 234 MG/1.5ML Suspension Prefilled Syringe 1.5 mL Intramuscular once a month , Notes to Pharmacist: Would like to use pill packs for his medications.Sertraline HCl 100 MG Tablet 1.5 tablet Orally Once a day , Notes to Pharmacist: Would like to use pill packs for his medications.risperiDONE 1 MG Tablet 1 tablet as needed Oral Once a day As needed, Notes to Pharmacist: Would like to use pill packs for his medications.Ergocalciferol 1.25 MG (98421 UT) Capsule 1 capsule Orally once a week , Notes to Pharmacist: Would like to use pill packs for his medications.traZODone HCl 100 MG Tablet 3 tablet at bedtime Orally Once a day , Notes to Pharmacist: Would like to use pill packs for his medications.Depakote ER 500 MG Tablet Extended Release 24 Hour 2 tablets at bedtime Orally Once a day , Notes to Pharmacist: Would like to use pill packs for his medications.[place] Carbonate 600 MG Capsule 2 capsule Orally Once a day , Notes to Pharmacist: Would like to use pill packs for his medications.hydrOXYzine HCl 50 MG Tablet 1 tablet as needed Orally Once a day , Notes to Pharmacist: Would like to use pill packs for his medications.Terazosin HCl 1 MG Capsule 1 capsule at bedtime Orally Once a day [place] Carbonate 300 MG Capsule 1 capsule at bedtime Orally Once a day , Notes to Pharmacist: Would like to use pill packs for his medications.Taking Albuterol Sulfate HFA 108 (90 Base) MCG/ACT Aerosol Solution 1 puff as needed Inhalation every 4 hrs Taking traZODone HCl 100 MG Tablet 1 tablet at bedtime Orally Once a day Taking Invega Sustenna 234 MG/1.5ML Suspension Prefilled Syringe 1.5 mL Intramuscular once a month , Notes to Pharmacist: Would like to use pill packs for his medications.Taking Sertraline HCl 100 MG Tablet 1.5 tablet Orally Once a day , Notes to Pharmacist: Would like to use pill packs for his medications.Taking risperiDONE 1 MG Tablet 1 tablet as needed Oral Once a day As needed, Notes to Pharmacist: Would like to use pill packs for his medications.Taking Ergocalciferol 1.25 MG (87638 UT) Capsule 1 capsule Orally once a week , Notes to Pharmacist: Would like to use pill packs for his medications.Taking traZODone HCl 100 MG Tablet 3 tablet at bedtime Orally Once a day , Notes to Pharmacist: Would like to use pill packs for his medications.Taking Depakote ER 500 MG Tablet Extended Release 24 Hour 2 tablets at bedtime Orally Once a day , Notes to Pharmacist: Would like to use pill packs for his medications.Taking [place] Carbonate 600 MG Capsule 2 capsule Orally Once a day , Notes to Pharmacist: Would like to use pill packs for his medications.Taking hydrOXYzine HCl 50 MG Tablet 1 tablet as needed Orally Once a day , Notes to Pharmacist: Would like to use pill packs for his medications.Taking Terazosin HCl 1 MG Capsule 1 capsule at bedtime Orally Once a day Taking [place] Carbonate 300 MG Capsule 1 capsule at bedtime Orally Once a day , Notes to Pharmacist: Would like to use pill packs for his medications. * Allergies: N .K.D.A.no[Allergies Verified] Objective: * Vitals: I nitials: ws, Wt:229, BP:108/60, HR:72, Oxygen sat %:99, Temp:97.7, RR:16, Pain scale:0. Assessment: * Assessment: 1. S chizoaffective disorder, bipolar type - F25.0 Plan: * Treatment: * Therapeutic Injections: Invega Sustenna : 234 mg (Dose No:1) (Route: Intramuscular) given by Lisa Ruby RN , WSS on right gluteus * Procedure Codes: 9 6372 THER/PROPH/DIAG INJ, SC/IM * * Sign off status: Completed true * Provider: V alvino Calixto DNP, PMHNP-BC, FIELD MARKETING MANAGER Date: 1 Generated for Printing/Faxing/eTransmitting on: 09:06 AM CDT
--- NOTE | ~2025-08-08 | XR_ITS ---
Examination: XR foot LT min 3V Clinical History: laceration Comparison: None Technique: 4 views left foot Findings/impression: 1. No radiopaque foreign body. 2. No fracture or other acute bony abnormality. Reviewed, dictated and finalized at location R.
[2025-08-08 09:03] VITALS: BP 119/71; PULSE 82; RESP 18; TEMP 36.7; O2SAT 99
--- OUTSIDE RECORDS SUMMARY | 2025-08-08 09:07 | XMS_ITS | Patient Health Record ---
Author Organization [facility] Address [address] [place] [address] Care Team Providers Care Sightseeing Guide Name Role Phone Eiv Calixto Primary Care Provider Allergies No Known Allergies Results Component Value Reference Range Notes Valproic Acid (Depakote)(R), S Reviewed date:06/13/2025 01:26:16 PM Interpretation: Performing Lab:[facility] [place], [address] [facility], Phone - [phone], Director - [facility] Notes/Report: Valproic Acid (Depakote)(R),S 35 50-100 ug/m L Detection Limit = 4 <4 indicates None Detected . Toxicity may occur at levels of 100-500. Measurements of free unbound valproic acid may improve the assess- ment of clinical response. [place] (Eskalith(R)), Serum Reviewed date:06/13/2025 01:26:36 PM Interpretation: Performing Lab:[facility], [address] [facility], [place], Phone - [phone], Director - [facility] Notes/Report: [place] (Eskalith(R)), Serum 0.9 0.5-1.2 mmol /L A concentration of 0.5-0.8 mmol/L is advised for long-term use; concentrations of up to 1.2 mmol/L may be necessary during acute treatment. Detection Limit = 0.1 <0.1 indicates None Detected Valproic Acid (Depakote)(R), S Reviewed date:09/24/2024 09:23:09 AM Interpretation: Performing Lab:[facility] [place], [address] [facility] Phone - [phone], Director - [facility] Notes/Report: Valproic Acid (Depakote)(R),S 96 50-100 ug/m L Detection Limit = 4 <4 indicates None Detected . Toxicity may occur at levels of 100-500. Measurements of free unbound valproic acid may improve the assess- ment of clinical response. [place] (Eskalith(R)), Serum Reviewed date:09/24/2024 09:23:05 AM Interpretation: Performing Lab:[facility] [place], [employer] [facility] Phone - [phone], Director - [facility] Notes/Report: [place] (Eskalith(R)), Serum 1.2 0.5-1.2 mmol /L A concentration of 0.5-0.8 mmol/L is advised for long-term use; concentrations of up to 1.2 mmol/L may be necessary during acute treatment. Detection Limit = 0.1 <0.1 indicates None Detected CBC With Differential/Platel et* Reviewed date:09/24/2024 09:22:58 AM Interpretation: Performing Lab:[facility] [place], [address] [facility] Phone - [phone], Director - [facility] Notes/Report: WBC 5.1 3.4-10.8 x10E3/uL RBC 4.95 4.14-5.80 x10E6/uL Hemoglobin 15.0 13.0-17.7 g/dL Hematocrit 44.1 37.5-51.0 % MCV 89 79-97 fL MCH 30.3 26.6-33.0 pg MCHC 34.0 31.5-35.7 g/dL RDW 12.3 11.6-15.4 % Platelets 271 150-450 x10E3/uL Neutrophils 54 Not Estab. % Lymphs 35 Not Estab. % Monocytes 7 Not Estab. % Eos 3 Not Estab. % Basos 1 Not Estab. % Neutrophils (Absolute) 2.8 1.4-7.0 x10E3/uL Lymphs (Absolute) 1.8 0.7-3.1 x10E3/uL Monocytes(Absolute) 0.4 0.1-0.9 x10E3/uL Eos (Absolute) 0.2 0.0-0.4 x10E3/uL Baso (Absolute) 0.0 0.0-0.2 x10E3/uL Immature Granulocytes 0 Not Estab. % Immature Grans (Abs) 0.0 0.0-0.1 x10E3/uL CMP 14 Comprehensive Metabol ic Panel* Reviewed date:09/24/2024 09:17:33 AM Interpretation: Performing Lab:[facility] [place], [address] [place] [address], Phone - [phone], Director - [facility] Notes/Report: Glucose 90 70-99 mg/dL BUN 5 6-20 mg/dL Creatinine 0.78 0.76-1.27 mg/dL eGFR 131 >59 mL/min/1.73 BUN/Creatinine Ratio 6 9-20 Sodium 138 134-144 mmol/L Potassium 4.8 3.5-5.2 mmol/L Chloride 104 96-106 mmol/L Carbon Dioxide, Total 23 20-29 mmol/L Calcium 9.9 8.7-10.2 mg/dL Protein, Total 6.7 6.0-8.5 g/dL Albumin 4.7 4.3-5.2 g/dL Globulin, Total 2.0 1.5-4.5 g/dL Bilirubin, Total 0.6 0.0-1.2 mg/dL Alkaline Phosphatase 66 51-125 IU/L AST (SGOT) 14 0-40 IU/L ALT (SGPT) 8 0-44 IU/L Hemoglobin A1c* Reviewed date:09/24/2024 09:16:23 AM Interpretation: Performing Lab:[facility] [place], [address] [place] [address], Phone - [phone], Director - [facility] Notes/Report: Hemoglobin A1c 4.4 4.8-5.6 % . Prediabetes: 5.7 - 6.4 Diabetes: >6.4 Glycemic control for adults with diabetes: <7.0 Lipid Panel* Reviewed date:09/24/2024 09:16:31 AM Interpretation: Performing Lab:[facility] [place], [address] [place] [address], Phone - [phone], Director - [facility] Notes/Report: Cholesterol, Total 150 100-199 mg/dL Triglycerides 98 0-149 mg/dL HDL Cholesterol 36 >39 mg/dL VLDL Cholesterol Ashok 18 5-40 mg/dL LDL Chol Calc ([facility]) 96 0-99 mg/dL TSH+Free T4* Reviewed date:09/24/2024 09:22:55 AM Interpretation: Performing Lab:[facility] [place], [address] [place] [address], Phone - [phone], Director - [facility] Notes/Report: TSH 1.750 0.450-4.500 uIU/mL T4,Free(Direct) 1.26 0.82-1.77 ng/dL Vitamin B12* Reviewed date:09/24/2024 09:22:52 AM Interpretation: Performing Lab:[facility] [place], [address] [place] [address], Phone - [phone], Director - [facility] Notes/Report: Vitamin B12 222 088-3131 pg/mL Vitamin D, 25-Hydroxy* Reviewed date:09/24/2024 09:22:48 AM Interpretation: Performing Lab:[facility] [place], [address] [place] [address], Phone - [phone], Director - [facility] Notes/Report: Vitamin D, 25-Hydroxy 44.1 30.0-100.0 ng/mL Vitamin D deficiency has been defined by the [place] of Medicine and an Endocrine Society practice guideline as a level of serum 25-OH vitamin D less than 20 ng/mL (1,2). The Endocrine Society went on to further define vitamin D insufficiency as a level between 21 and 29 ng/mL (2). 1. IOM ([place] of Medicine). 2010. Dietary reference intakes for calcium and D. [place]: The National Academies Press. 2. Garcia MF, Venecia HERRERA, Sameer ESTRADA, et al. Evaluation, treatment, and prevention of vitamin D deficiency: an Endocrine Society clinical practice guideline. JCEM. 2010; 96(7):1911-30. Reason For Referral Reason He would like help w ith disability. Keeping a job is a big struggle for him. Has been denied a few times. Diagnosis 1 Schizoaffective diso rder, bipolar type (F25.0) Referral Organization [facility] Referring Provider First Name Evi Referring Provider Last Name Calixto Referring Provider Speciality Psychiatry Referred Provider Specialty Behavioral [facility] General Notes Dat Portilloid: 06/13/2025 - Attempted call. Left voicemail to number on file with contact information. Voicemail box belonged to Shakila. May be wrong number. Will follow up., Dat Portilloid: 06/20/2025 - Left voicemail to number on file with contact information. Voicemail box belonged to Shakila., Dat Lechuga 07/04/2025 08:27:01 AM > Letter sent requesting call back. Clinical Notes Yolanda Barrientos 03:57:18 PM > Health Navigator made contact with Franklin and his brother. Spoke to them about his disability status. Health Navigator will reach tomorrow with disability resources. Client's brother voiced understanding and left with HN's contact information., Haylee Canales 05/29/2025 03:05:11 PM >Reassigned to Dat Lechuga for assistance with Disability Application Referral Priority Routine Medications Medication SIG (Take, Route, Frequency, Duration) Notes Start Date End Date Status hydrOXYzine HCl 50 MG 1 tablet as needed Orally Once a day; Duration: 30 days Would like to use pill packs for his medications. Active Terazosin HCl 1 MG 1 capsule at bedtime Orally Once a day; Duration: 30 days Active Albuterol Sulfate HFA 108 (90 Base) MCG/ACT 1 puff as needed Inhalation every 4 hrs Active [place] Carbonate 300 MG 1 capsule at bedtime Orally Once a day; Duration: 30 days Would like to use pill packs for his medications. 05/30/2024 Active traZODone HCl 100 MG 1 tablet at bedtime Orally Once a day; Duration: 30 day(s) Active traZODone HCl 100 MG 3 tablet at bedtime Orally Once a day; Duration: 30 days Would like to use pill packs for his medications. Active Depakote ER 500 MG 2 tablets at bedtime Orally Once a day; Duration: 30 days Would like to use pill packs for his medications. Active [place] Carbonate 600 MG 2 capsule Orally Once [...] for his medications. Active Ergocalciferol 1.25 MG (89892 UT) 1 capsule Orally once a week; Duration: 30 days Would like to use pill packs for his medications. Active Social History Tobacco Use: Social History Observation Description Date Details (start date - stop date) Never Smoker NA - NA Sex Assigned At : Social History Observation Description Sex Assigned At Male Tobacco Control (Standard) Question Answer Notes Tobacco use: Nonsmoker Problems Problem Type SNOMED Code ICD Code Onset Dates Problem Status W/U Status Risk Notes Problem Schizoaffective disorder, bipolar type (36409288) Schizoaffective disorder, bipolar type (F25.0) Active confirmed Problem Overweight (837302344) Over weight (E66.3) Active confirmed Vital Signs Heart Rate 72 /min 08/07/2025 Temperature 97.7 degrees Fahrenheit 08/07/2025 Respiratory Rate 16 /min 08/07/2025 Blood pressure diastolic 60 mm Hg 08/07/2025 Oximetry 99 % 08/07/2025 Height 70 in 04/24/2025 Blood pressure systolic 108 mm Hg 08/07/2025 Weight 229 lbs 08/07/2025 BMI 33.57 kg/m2 04/24/2025 Encounters Encounter Location Date Provider Diagnosis [address] [place] [address] 08/07/2025 Evi Calixto [address] [place] [address] 09/03/2024 Evi Calixto Schizoaffective disorder, bipolar type F25.[address] [address] 12/20/2024 Evi Calixto [address] [place] [address] 01/23/2025 Evi Calixto Schizoaffective disorder, bipolar type F25.[address] [place] [address] 04/17/2025 Evi Calixto [address] [place] [address] 04/17/2025 Evi Calixto Schizoaffective disorder, bipolar type F25.[address] [place] [address] 12/13/2024 Evi Calixto [address] [place] [address] 11/14/2024 Evi Calixto Schizoaffective disorder, bipolar type F25.[address] [place] [address] 12/23/2024 Evi Calixto Schizoaffective disorder, bipolar type F25.[address] [place] [address] 01/23/2025 Evi Calixto Schizoaffective disorder, bipolar type F25.[address] [place] [address] 02/20/2025 Evi Calixto Schizoaffective disorder, bipolar type F25.[address] [place] [address] 03/20/2025 Evi Calixto Schizoaffective disorder, bipolar type F25.[address] [place] [address] 04/17/2025 Evi Calixto Schizoaffective disorder, bipolar type F25.[address] [place] [address] 05/15/2025 Evi Calixto Schizoaffective disorder, bipolar type F25.[address] [place] [address] 06/12/2025 Evi Durga Schizoaffective disorder, bipolar type F25.[address] [place] [address] 07/10/2025 Evi Calixto Schizoaffective disorder, bipolar type F25.[address] [place] [address] 08/07/2025 Evi Calixto Schizoaffective disorder, bipolar type F25.[address] [place] [address] 08/23/2024 Evi Calixto Schizoaffective disorder, bipolar type F25.0 and Nutritional counseling Z71.[address] [place] [address] 09/20/2024 Evi Powers Nutritional counseli ng Z71.3 and Schizoaffective disorder, bipolar type F25.[address] [address] 10/18/2024 Evi Calixto Schizoaffective disorder, bipolar type F25.0 and Nutritional counseling Z71.[address] [address] 02/07/2025 Evi Calixto Schizoaffective disorder, bipolar type F25.0 Formerly [facility] [address] [place] [address] 04/24/2025 Evi Calixto Schizoaffective disorder, bipolar type F25.0 and Over weight E66.3 Assessments Encounter Date Diagnosis (ICD Code) Assessment Notes Treatment Notes Treatment Clinical Notes Section Notes 11/14/2024 Schizoaffective disorder, bipolar type (ICD-10 - F25.0) 12/23/2024 Schizoaffective disorder, bipolar type (ICD-10 - F25.0) 01/23/2025 Schizoaffective disorder, bipolar type (ICD-10 - F25.0) 01/23/2025 Schizoaffective disorder, bipolar type (ICD-10 - F25.0) 02/07/2025 Schizoaffective disorder, bipolar type (ICD-10 - F25.0) Increased trazodone to help with sleep. Continue services as scheduled. Labs completed recently. May self-administer medications or be administered own oral medications per [employer] protocols. Provided informed consent with understanding of side effects, adverse effects, risks and benefits as well as alternative treatments as previously discussed and with the above recommended medications & other aspects of the treatment program. Agrees to return sooner if symptoms worsen or suicidal or homicidal ideations occur. 02/20/2025 Schizoaffective disorder, bipolar type (ICD-10 - F25.0) 04/17/2025 Schizoaffective disorder, bipolar type (ICD-10 - F25.0) 04/17/2025 Schizoaffective disorder, bipolar type (ICD-10 - F25.0) 04/24/2025 Schizoaffective disorder, bipolar type (ICD-10 - F25.0) Continue current medications. Continue services as scheduled. Labs completed recently. May self-administer medications or be administered own oral medications per [employer] protocols. Provided informed consent with understanding of side effects, adverse effects, risks and benefits as well as alternative treatments as previously discussed and with the above recommended medications & other aspects of the treatment program. Agrees to return sooner if symptoms worsen or suicidal or homicidal ideations occur. 09/03/2024 Schizoaffective disorder, bipolar type (ICD-10 - F25.0) 05/15/2025 Schizoaffective disorder, bipolar type (ICD-10 - F25.0) 06/12/2025 Schizoaffective disorder, bipolar type (ICD-10 - F25.0) 08/07/2025 Schizoaffective disorder, bipolar type (ICD-10 - F25.0) 07/10/2025 Schizoaffective disorder, bipolar type (ICD-10 - F25.0) 08/23/2024 Schizoaffective disorder, bipolar type (ICD-10 - F25.0) Increase [place] at night to help with moodinstability Labs in 1 week. May self-administer medications or be administered own oral medications per [employer] protocols. Provided informed consent with understanding of side effects, adverse effects, risks and benefits as well as alternative treatments as previously discussed and with the above recommended medications & other aspects of the treatment program. Agrees to return sooner if symptoms worsen or suicidal or homicidal ideations occur. 09/20/2024 Nutritional counseling (ICD-10 - Z71.3) 10/18/2024 Schizoaffective disorder, bipolar type (ICD-10 - F25.0) Continue current medications. Continue services as scheduled. Labs completed recently. May self-administer medications or be administered own oral medications per [employer] protocols. Provided informed consent with understanding of side effects, adverse effects, risks and benefits as well as alternative treatments as previously discussed and with the above recommended medications & other aspects of the treatment program. Agrees to return sooner if symptoms worsen or suicidal or homicidal ideations occur. 03/20/2025 Schizoaffective disorder, bipolar type (ICD-10 - F25.0) 10/18/2024 Nutritional counseling (ICD-10 - Z71.3) 08/23/2024 Nutritional counseling (ICD-10 - Z71.3) 09/20/2024 Schizoaffective disorder, bipolar type (ICD-10 - F25.0) 04/24/2025 Over weight (ICD-10 - E66.3) 09/20/2024 Other Increase sertraline to help with depression. Plan Of Treatment Next Appt Details Provider Name:Evi santos, 08/28/2025 02:40:00 PM, [address], [place], [address], Provider Name:Evi santos, 09/04/2025 11:00:00 AM, [address], [place], [address], Insurance Providers Payer Name Payer Address Payer Phone Subscriber Number Group Number Insured Name Patient Relationship to Insured Coverage Start Date Coverage End Date [facility] [address] [place] [address] [id number] Jeffy Mosley Self - patient is the insured 4 [facility] [address] [place] [address] [id number] Jeffy Mosley Self - patient is the insured 3 [employer] [facility] [address] [place] [address] [id number] Jeffy Mosley Self - patient is the insured 3 4 Medications Administered Medication Instructions Date of Administration Dosage Notes Invega Isabella 10/06/2023 156 mg Invega Sustenna 12/22/2023 156 mg Invega Sustenna 01/19/2024 234 mg Invega Sustenna 02/16/2024 234 mg Invega Sustenna 03/15/2024 234 mg Invega Sustenna 04/12/2024 234 mg Invega Sustenna 05/21/2024 234 mg Invega Sustenna 06/21/2024 234 mg Invega Sustenna 07/26/2024 234 mg Invega Sustenna 08/23/2024 234 mg Invega Sustenna 09/20/2024 234 mg Invega Sustenna 10/18/2024 234 mg Manufact by Magdalena Pt jose j well. Invega Sustenna 11/14/2024 234 mg Invega Sustenna 12/23/2024 234 mg Invega Sustenna 01/23/2025 234 mg Pt jose j we ll. Invega Sustenna 02/20/2025 234 mg Pt jose j we ll. Invega Sustenna 03/20/2025 234 mg Pt jose j we ll. Invega Sustenna 04/17/2025 234 mg Manufact by Magdalena Pt jose j well. Invega Sustenna 05/15/2025 234 mg Pt jose j we ll. Invega Sustenna 06/12/2025 234 mg Pt jose j we ll. Invega Sustenna 07/10/2025 234 mg Pt toll w ell Invega Sustenna 08/07/2025 234 mg Pt jose j we ll. Medical (General) History Surgical History Surgery Date(Month/Year) Tonsillectomy 2009 adnoidectomy 2009 Hospitalization History Reason Date(Month/Year) Hospitalized at [facility] 12/2023
--- NOTE | 2025-08-08 09:19 | ED.WOUNDLAC ---
HPI - Wound/Laceration General Chief Complaint: Wound/Laceration Stated Complaint: laceration to left foot Time Seen by Provider: 08/08/25 09:09 Source: patient Mode of arrival: ambulatory Limitations: no limitations History of Present Illness HPI narrative: This is a 19 year old male that presents to the ER for laceration to the left foot. Sustained earlier this morning via a janelle jar. Reports bleeding and pain to the area. Reports he is up to date on tetanus. Related Data Home Medications ?Medication ?Instructions ?Recorded ?Confirmed ?Last Taken ?Type divalproex 500 mg tablet,delayed 500 mg PO BID 11/10/23 11/10/23 Unknown History release Held on 11/12/23. Instructions: Hold- resume when okay with the provider ergocalciferol (vitamin D2) 1,250 1,250 mcg PO WEEKLY 11/10/23 11/10/23 11/07/23 History mcg (50,000 unit) capsule Held on 11/12/23. Instructions: Hold- resume when okay with the provider hydroxyzine HCl 50 mg tablet 50 mg PO HS 11/10/23 11/10/23 Unknown History Held on 11/12/23. Instructions: Hold- resume when okay with the provider paliperidone palmitate 156 mg/mL 156 mg IM MONTHLY 11/10/23 11/10/23 Unknown History intramuscular syringe (Invega Sustenna) Held on 11/12/23. Instructions: Hold- resume when okay with the provider terazosin 1 mg capsule 1 mg PO HS 11/10/23 11/10/23 Unknown History Held on 11/12/23. Instructions: Hold- resume when okay with the provider trazodone 100 mg tablet 200 mg PO HS 11/10/23 11/10/23 Unknown History Held on 11/12/23. Instructions: Hold- resume when okay with the provider Allergies Allergy/AdvReac Type Severity Reaction Status Date / Time ibuprofen Allergy Seizure Verified 08/08/25 09:08 Review of Systems Review of Systems: All systems reviewed & are unremarkable except as noted in HPI and below PMFSH Past Medical History Medical History Autism Schizoaffective disorder Family History Family History (Updated 11/10/23 @ 07:20 by Siomara Lo RN) Other Unknown family medical history Social History Social History Smoking status: Never smoker Alcohol intake: never Substance use: never Do You Feel Safe in your Home?: Yes Lack of Transportation: No Lack of Food: Never True Current Housing: I Have Housing Concerned About Future Housing: No Difficulty Paying Gas/Electric Bills: No Difficulty Paying for Meds: No Currently Unemployed: No Education: High School Diploma/GED Difficulty w/ Childcare or Family Care: No Spiritual care concerns: No Exam Narrative: GENERAL: Well-appearing, well-nourished, and in no acute distress. HEAD: Normocephalic, atraumatic. EYES: EOMI. EXTREMITIES: Normal range of motion. No edema. Left foot with 2cm flap laceration to the lateral heel SKIN: Warm, dry, no rash. NEURO: No focal deficits. Alert and oriented x3. PSYCH: Normal mood and affect Course Vital Signs Vital signs: Vital Signs Temperature 98.1 F 08/08/25 09:03 Pulse Rate 82 08/08/25 09:03 Respiratory Rate 18 08/08/25 09:03 Blood Pressure 119/71 08/08/25 09:03 Pulse Oximetry 99 08/08/25 09:03 Oxygen Delivery Room Air 08/08/25 09:03 Temperature 98.1 F 08/08/25 09:03 Pulse Rate 80 08/08/25 09:44 Respiratory Rate 14 08/08/25 09:44 Blood Pressure 122/70 08/08/25 09:44 Pulse Oximetry 100 08/08/25 09:44 Oxygen Delivery Room Air 08/08/25 09:03 Procedures Laceration Laceration 1: Date: 08/08/25 Time: 10:40 Site: lower extremity Side (If applicable): left Size (cm): 2 Description: flap Depth: simple, single layer Local Anesthetic: lidocaine 1% and with epi Amount of anesthesia used (mL): 2 Pre-repair: wound explored and irrigated ====== Skin Level ====== Skin layer closed with: nylon Size (cm): 4-0 Number of sutures: 3 Technique: simple, interrupted ====== Subcutaneous Layer ====== ====== Muscle Layer ====== ====== Tendon Layer ====== MDM - Wound/Laceration MDM Narrative Medical decision making narrative: Patient presents the emergency department for laceration to the left foot sustained earlier this morning. Left foot x-ray without acute osseous abnormalities or evidence of foreign body. Patient up-to-date on tetanus vaccination. Wound was irrigated and closed with sutures. Educated on wound care. He was given warnings to return to the ER Differential Diagnosis Differential diagnosis: Likely laceration, abrasion and avulsion of skin Imaging Data Radiologist's impression: Left foot x-ray: Findings/impression: 1. No radiopaque foreign body. 2. No fracture or other acute bony abnormality. Critical Care Time Critical Care Time Critical Care Time: No Discharge Plan Discharge Clinical Impression: Laceration Patient Disposition: Home Condition: Stable Instructions: Care For Your Stitches (ED), Laceration (ED) Additional Instructions: Return to the emergency department if you experience fever, redness or swelling of your wound, abnormal drainage from your wound, or any other symptoms that are concerning to you. Take oral antibiotic as prescribed. Apply antibiotic ointment daily. Do not soak the wound. Clean with mild soap and water daily Follow-up with your primary care doctor for suture removal in 10-14 days. Patient Language: Marshallese Prescriptions: New cephalexin 500 mg capsule 500 mg PO Q8H 5 Days Qty: 15 0RF No Action hydroxyzine HCl 50 mg tablet 50 mg PO HS terazosin 1 mg capsule 1 mg PO HS divalproex 500 mg tablet,delayed release (DR/EC) 500 mg PO BID trazodone 100 mg tablet 200 mg PO HS ergocalciferol (vitamin D2) 1,250 mcg (50,000 unit) capsule 1,250 mcg PO WEEKLY Rx Instructions: on Monday Invega Sustenna 156 mg/mL syringe 156 mg IM MONTHLY Rx Instructions: the 5th of every month Follow-up/Referrals: Janis Dos Santos MD [Physician, Pediatrics] Stand Alone Forms: Work/School Release IP
[2025-08-08 09:44] VITALS: BP 122/70; PULSE 80; RESP 14; O2SAT 100
[2025-08-08] MEDS: LIDOCAINE, EPINEPHRINE, TETRACAINE VISCOUS SOLN 3 ML TOPICAL (09:44)
== END 2025-08-08 10:44 | disposition home or self-care (01) ==
PROVIDERS: Emergency Provider Physician Assistant
DX: S91.312A Laceration without foreign body, left foot, initial encounter (principal); W26.8XXA Contact with other sharp object(s), not elsewhere classified, initial encounter
CPT/HCPCS: 12001; 73630; 99283